=== PATIENT | female | born 1990 ===

== ENCOUNTER 2018-04-28 | Emergency (ER) | payer SELFPAY ==
[2018-04-28 00:19] VITALS: RESP 18; TEMP 97.9
--- NOTE | 2018-04-28 00:24 | ED PDOC ---
Arrival/HPI - General Chief Complaint: Headache Time Seen by Provider: 04/28/18 00:08 Historian: Patient - History of Present Illness Narrative History of Present Illness (Text): 04/28/18 00:24 Peggy Mcdonough is a 28 year old female, with no significant past medical history, who presents to the Emergency department complaining of headache. Patient states she was sitting in the bathroom moving her bowels when she developed a sharp, left-sided headache 3 days ago. Patient states she has been experiencing a headache since then and notes a family history of brain aneurysm. Patient denies any fever, chills, chest pain, shortness of breath, nausea, vomiting, diarrhea, urinary symptoms, back pain, neck pain, dizziness, or any other complaints. Symptom Onset: Gradual Symptom Course: Unchanged Activities at Onset: Light Context: Home Past Medical History - Provider Review Nursing Documentation Reviewed: Yes - Reproductive Currently : No - Psychiatric Hx Substance Use: No Family/Social History - Physician Review Nursing Documentation Reviewed: Yes Family/Social History: Unknown Family HX Smoking Status: Never Smoked Hx Alcohol Use: No Hx Substance Use: No Allergies/Home Meds Allergies/Adverse Reactions: Allergies No Known Allergies Allergy (Verified 04/28/18 00:15) Review of Systems - Physician Review All systems were reviewed & negative as marked: Yes - Review of Systems Constitutional: Normal. absent: Fevers Eyes: Normal ENT: Normal Respiratory: Normal. absent: SOB, Cough Cardiovascular: Normal. absent: Chest Pain Gastrointestinal: Normal. absent: Abdominal Pain, Diarrhea, Nausea, Vomiting Genitourinary Female: Normal. absent: Dysuria, Frequency, Hematuria, Urine Output Changes Musculoskeletal: Normal. absent: Back Pain, Neck Pain Skin: Normal. absent: Rash Neurological: Headache. absent: Dizziness Endocrine: Normal Hemo/Lymphatic: Normal Psychiatric: Normal Physical Exam Vital Signs Reviewed: Yes Vital Signs Temp Pulse Resp BP Pulse Ox 04/28/18 00:19 97.9 F 70 18 141/85 100 Temperature: Afebrile Blood Pressure: Normal Pulse: Regular Respiratory Rate: Normal Appearance: Positive for: Well-Appearing, Non-Toxic, Comfortable Pain Distress: None Mental Status: Positive for: Alert and Oriented X 3 - Systems Exam Head: Present: Atraumatic, Normocephalic Pupils: Present: PERRL Extroacular Muscles: Present: EOMI Conjunctiva: Present: Normal Mouth: Present: Moist Mucous Membranes Neck: Present: Normal Range of Motion. No: Meningeal Signs, MIDLINE TENDERNESS, Paraspinal Tenderness Respiratory/Chest: Present: Clear to Auscultation, Good Air Exchange. No: Respiratory Distress, Accessory Muscle Use Cardiovascular: Present: Regular Rate and Rhythm, Normal S1, S2. No: Murmurs Abdomen: No: Tenderness, Distention, Peritoneal Signs Back: Present: Normal Inspection. No: CVA Tenderness, Midline Tenderness, Paraspinal Tenderness Upper Extremity: Present: Normal Inspection. No: Cyanosis, Edema Lower Extremity: Present: Normal Inspection. No: Edema Neurological: Present: GCS=15, CN II-XII Intact, Speech Normal Skin: Present: Warm, Dry, Normal Color. No: Rashes Psychiatric: Present: Alert, Oriented x 3, Normal Insight, Normal Concentration Medical Decision Making ED Course and Treatment: 04/28/18 00:24 Impression: 28 year old female complaining of headache. Plan: -- CT Head w/o contrast -- Reglan -- Reassess and disposition Prior Visits: Notes and results from previous visits were reviewed. Progress Notes: 04/28/18 02:30 CT Head: Normal size of the ventricles and extra-axial spaces for the patient's age. Normal white matter tracts of the supratentorial brain. Normal basal ganglia and thalami. Normal brainstem. Normal cerebellum. There is no demonstrated extra-axial, intraparenchymal, or intraventricular hemorrhage. There are no findings of an acute ischemic infarction. Normal calvarium. There is no demonstrated fracture. Normal soft tissue structures. Moderate chronic mucosal inflammatory changes of the maxillary sinuses and ethmoid air cells. Normal remaining visualized paranasal sinuses. IMPRESSION: Normal unenhanced CT scan of the brain. Chronic ethmoid and maxillary sinusitis. Electronically signed on Apr 28, 2018 2:15:31 AM EST by: Edith Ferrara M.D., Certified by ABR, MSK, Neuroradiology - Lab Interpretations I have reviewed the lab results: Yes - RAD Interpretation Soda Room Operator: ED Physician - EKG Interpretation Interpreted by ED Physician: Yes Type: 12 lead EKG - Scribe Statement The provider has reviewed the documentation as recorded by the Karl Myers Provider Scribe Attestation: All medical record entries made by the Scribe were at my direction and personally dictated by me. I have reviewed the chart and agree that the record accurately reflects my personal performance of the history, physical exam, medical decision making, and the department course for this patient. I have also personally directed, reviewed, and agree with the discharge instructions and disposition. Disposition/Present on Arrival - Present on Arrival Any Indicators Present on Arrival: No History of DVT/PE: No History of Uncontrolled Diabetes: No Urinary Catheter: No History of Decub. Ulcer: No History Surgical Site Infection Following: None - Disposition Have Diagnosis and Disposition been Completed?: Yes Diagnosis: Sinusitis Disposition: HOME/ ROUTINE Disposition Time: 03:30 Condition: IMPROVED Discharge Instructions (ExitCare): Sinusitis in Adults Prescriptions: Amoxicillin/Clavulanate [Augmentin 500 MG-125 MG] 1 tab PO BID #20 tab Forms: [facility] (Indonesian), WORK NOTE
[2018-04-28] MEDS ORDERED: Amoxicillin-Clav 875-125 mg Tab PO STA (03:04)
[2018-04-28 03:46] VITALS: BP 128/77; PULSE 72; O2SAT 100
--- NOTE | 2018-04-28 08:48 | CT ---
Date of service: 04/28/2018 PROCEDURE: CT HEAD WITHOUT CONTRAST. HISTORY: samuels COMPARISON: None available. TECHNIQUE: Axial computed tomography images were obtained through the head/brain without intravenous contrast. Radiation dose: Total exam DLP = 864.55 mGy-cm. This CT exam was performed using one or more of the following dose reduction techniques: Automated exposure control, adjustment of the mA and/or kV according to patient size, and/or use of iterative reconstruction technique. FINDINGS: HEMORRHAGE: No intracranial hemorrhage. BRAIN: No mass effect or edema. No atrophy or chronic microvascular ischemic changes. VENTRICLES: Unremarkable. No hydrocephalus. CALVARIUM: Unremarkable. PARANASAL SINUSES: Moderate multifocal ethmoid sinus disease noted. MASTOID AIR CELLS: Unremarkable as visualized. No inflammatory changes. OTHER FINDINGS: Moderately expanded sella, containing primarily CSF but with a midline stalk of the pituitary gland. Consider possible arachnoid cyst or even epidermoid lesion. Follow-up MRI may be helpful. IMPRESSION: No acute intracranial findings as discussed above. Prominent sella is appreciate without prominent soft tissues suggest macro adenoma. The pituitary gland appears compacted inferiorly potentially by a arachnoid cyst or epidermoid tumor. MRI may be helpful for added characterization of the sella.
== END 2018-04-28 03:30 | disposition home or self-care (01) ==
LOC: ED
DX: J32.0 Chronic maxillary sinusitis (principal); J32.2 Chronic ethmoidal sinusitis
CPT/HCPCS: 70450; 81025; 96374; 99285; J2765